=== PATIENT | male | born 1945 | race Caucasian/White ===

== ENCOUNTER 2024-09-05 15:09 | Emergency (ER) | payer OTHER ==
[~2024-09-05] VITALS: Ht 177.8 cm; Wt 67.0 kg
[~2024-09-05 15:09] MED LIST: AZIT-43; DOCU-94; FLUO-125; LACT10PA; LEUP1INJ; LISI10TA34; MELO7.5T7; METO25TA93; NITR0.4S31; ONDA-144; OXYB5TAB24; POTA10CA29; SIMV20TA20; SULF-35; TOLT4CAP; VARD20TA
--- NOTE | 2024-09-05 16:56 | ED.PDOC ---
HPI Comments 78-year-old male who presents to the emergency department with chest pain that started approximately 8-9 p.m. yesterday evening. He describes the pain as a heavy, pressure-like sensation does not radiate, unless side of his chest currently 7/10, intermittent. He states nitro relieved his chest pain a little bit . He has associated headache, rhinorrhea that started this morning, nausea and vomiting that started this morning, a little bit of left-sided numbness and he did not notice before, no other weakness, speech changes, difficulty with ambulation. Patient's past medical history of prostate cancer status post prostatectomy, status post colectomy, he denies history of stent or ND. 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 He states he suffers from low blood pressure however he takes simvastatin, Protonix, lisinopril, hydroxyurea, oxybutynin, al endronate, nitroglycerin. He took 3 baby aspirin prior to coming to the emergency department. Chief Complaint: Chest Pain Time Seen by MD: 15:26 Primary Care Provider: GRACIE Allergies: Coded Allergies: Penicillins (Verified Allergy, 01/09/13) Home Meds Reported Medications Docusate Sodium (Colace) 100 Mg Cap 01/09/13 Oxybutynin Chloride (Ditropan Xl) 5 Mg Tab 01/09/13 Tolterodine Tartrate (Detrol La) 4 Mg Cap 01/09/13 Meloxicam (Meloxicam) 7.5 Mg Tab 01/09/13 Metoprolol Succinate (Metoprolol Succinate Er) 25 Mg Tab 01/09/13 Vardenafil Hydrochloride (Levitra) 20 Mg Tab 01/09/13 Ondansetron (Zofran) 4 Mg Tab 01/09/13 Potassium Chloride (Micro-K) 10 Meq Cap 01/09/13 Nitroglycerin (Nitroglycerin) 0.4 Mg Sl 01/09/13 Fluoxetine Hcl (Fluoxetine Hcl) 20 Mg Cap 01/09/13 Lisinopril (Lisinopril) 10 Mg Tab 01/09/13 Azithromycin (Azithromycin) 250 Mg Tab 01/09/13 Leuprolide Acetate (Eligard) 22.5 Mg Inj 01/09/13 Simvastatin (Simvastatin) 20 Mg Tab 01/09/13 Lactulose (Kristalose) 10 Gm Nura 01/09/13 Sulfamethoxazole-Trimethoprim (Bactrim Ds) 1 Tab Tab 01/09/13 Leuprolide Acetate (Eligard) 22.5 Mg Inj 01/09/13 Mode of Arrival: Ambulatory Review of Systems: REVIEW OF SYSTEMS: No fever, no chills, or fatigue HEENT: No sore throat, no earache, no congestion, no neck pain. Cardiac: Positive chest pain. No palpitations. Lungs: No shortness of breath, no cough. GI: No nausea, no vomiting, no diarrhea, no constipation, no abdominal pain : No dysuria, frequency, or urgency. No hematuria. Musculoskeletal: No joint pain , no joint swelling, no extremity edema. Skin: No rash, no itching. Neuro: Positive headache, no dizziness, no weakness Vital Signs Vital Signs Date Time Temp Pulse Resp B/P (MAP) Pulse Ox O2 Delivery O2 Flow Rate FiO2 09/05/24 18:29 98.6 58 17 141/68 (92) 96 98.6 09/05/24 18:29 Room Air Physical Exam General: Awake, alert and oriented. No acute distress. Skin: Skin in warm, dry and intact. Appropriate color for ethnicity. Nailbeds pink with no cyanosis. HEENT: The head is normocephalic and atraumatic. Conjunctivae are clear without exudates or hemorrhage. Sclera is non-icteric. EOM are intact. No signs of nystagmus. Eyelids are normal in appearance without swelling or lesions. Oral mucosa is pink and moist Neck: The neck is supple with normal range of motion. No JVD. Cardiac: Heart rate and rhythm are normal. No murmurs, gallops, or rubs are auscultated. Radial pulses strong and equal bilaterally. Respiratory: No signs of respiratory distress. Lung sounds are clear in all lobes bilaterally without rales, ronchi, or wheezes. Abdominal: Abdomen is soft, non-tender without distention. Bowel sounds are present and normoactive in all four quadrants. Extremities: Upper and lower extremities are atraumatic in appearance without deformity or edema. Neurological: The patient is awake, alert and oriented to person, place, and time with normal speech. Speech is clear. There is no facial asymmetry. Normal gait. Psychiatric: Appropriate mood and affect. Good judgement and insight. No visual or auditory hallucinations. Past Medical History PAST MEDICAL HISTORY: CAD, High Lipids, HTN Family History Family History: Unobtainable Social History Smoker: Less Than 1 Pack/Day Alcohol: Denies ETOH Use Drugs: Denies Drug Use Lives In: Home EKG EKG : Comments Sinus rhythm at a rate of 59, QTC 442, QRS axis 41 no STEMI. Was a procedure done? Was a procedure done?: No CP Differential Dx Differential Diagnosis: Other (Differential diagnoses considered include acute ischemic coronary syndrome, aortic dissection, cardiac tamponade, mediastinitis, pulmonary embolus, pneumothorax, tension pneumothorax, esophageal rupture, coronary artery vasospasm, myocarditis, pericarditis, pneumonia, pulmonary edema, esophageal tear, pancreatitis, aortic stenosis, dilated cardiomyopathy, hypertrophic cardiomyopathy, mitral valve prolapse, malignancy, pleuritis, pneumomediastinum, primary pulmonary hypertension, cholecystitis, esophageal spasm, esophagus, gastritis, GERD, peptic ulcer disease, costochondritis, fibromyalgia, rib fracture, herpes zoster, radicular syndromes, thoracic outlet syndrome, somatization.) X-Ray, Labs, Meds, VS Vital Signs Date Time Temp Pulse Resp B/P (MAP) Pulse Ox O2 Delivery O2 Flow Rate FiO2 09/05/24 18:29 98.6 58 17 141/68 (92) 96 98.6 09/05/24 18:29 58 17 96 Room Air 09/05/24 18:11 56 09/05/24 16:13 59 09/05/24 15:28 98.1 52 16 171/82 (111) 94 09/05/24 15:14 59 Lab Test 09/05/24 18:32 09/05/24 16:20 09/05/24 15:17 Range/Units Influenza Type A Antigen Negative Negative Influenza Type B Antigen Negative Negative Troponin I High Sensitivity 4 5 </=54 ng/L White Blood Count 10.4 4.4-10.8 10^3/uL Red Blood Count 4.03 L 4.5-5.90 10^6/uL Hemoglobin 16.7 13.5-17.5 g/dL Hematocrit 48.3 41.0-53.0 % Mean Corpuscular Volume 119.8 H 80.0-100.0 fL Mean Corpuscular Hemoglobin 41.5 H 28.0-32.0 pg Mean Corpuscular Hemoglobin Concent 34.7 32.0-36.0 g/dL Red Cell Distribution Width 13.6 11.8-14.3 % Platelet Count 435 140-450 10^3/uL Mean Platelet Volume 7.6 6.9-10.8 fL Neutrophils (%) (Auto) 74.6 37.0-80.0 % Lymphocytes (%) (Auto) 14.8 10.0-50.0 % Monocytes (%) (Auto) 9.0 0.0-12.0 % Eosinophils (%) (Auto) 0.6 0.0-7.0 % Basophils (%) (Auto) 1.0 0.0-2.0 % Neutrophils # (Auto) 7.8 1.6-8.6 10 ^3/uL Lymphocytes # (Auto) 1.5 0.4-5.4 10 ^3/uL Monocytes # (Auto) 0.9 0-1.3 10 ^3/uL Eosinophils # (Auto) 0.1 0-0.8 10 ^3/uL Basophils # (Auto) 0.1 0-0.2 10 ^3/uL Nucleated Red Blood Cells 0.0 % Platelet Estimate [place] Large Platelets Few Polychromasia Slight Macrocytosis Moderate D-Dimer, Quantitative 0.89 H 0.0-0.49 mg/L FEU Sodium Level 140 136-145 mmol/L Potassium Level 4.9 3.5-5.1 mmol/L Chloride Level 107 98-107 mmol/L Carbon Dioxide Level 25 20-31 mmol/L Anion Gap 8 5-15 Blood Urea Nitrogen 14 9-23 mg/dL Creatinine 0.99 0.700-1.30 mg/dL Glomerular Filtration Rate Calc 78 >90 mL/min BUN/Creatinine Ratio 14.1 10.0-20.0 Serum Glucose 98 74-106 mg/dL Calcium Level 9.5 8.7-10.4 mg/dL Total Bilirubin 1.0 0.2-1.0 mg/dL Aspartate Amino Transferase (AST) 20 13-40 U/L Alanine Aminotransferase (ALT) 18 7-40 U/L Alkaline Phosphatase 68 46-116 U/L B-Type Natriuretic Peptide 120.11 0-100 pg/mL Total Protein 6.4 5.7-8.2 g/dL Albumin 4.3 3.2-4.8 g/dL Current Medications Medications (Trade) Dose Ordered Sig/Dion Route Start Time Stop Time Status Last Admin Acetaminophen (Tylenol Tablet) 650 mg ONCE ONCE PO 09/05/24 17:00 09/05/24 17:01 DC 09/05/24 18:30 CHEST RADIOGRAPH Indication: cp Technique: Single frontal view of the chest was obtained COMPARISON: None FINDINGS: Lines and Tubes: None Lungs: Clear Pleura: No effusion. No pneumothorax. Cardiomediastinal contours: Unremarkable Bones: Unremarkable IMPRESSION: No acute disease. Time of 1ST Reevaluation: 21:20 Reevaluation 1ST: N/A Patient Education/Counseling: Other (Patient eloped) Family Education/Counseling: No Family Present Departure 1 Departure Time of Disposition: 21:20 Impression: Primary Impression: Chest pain Disposition: HOME / SELF CARE / HOMELESS Condition: Stable Comments 78 Year old male with chest pain. EKG negative for signs of ischemia. High sensitivity troponin negative. CXR shows no acute process. D-dimer positive in the presence of history of prostate cancer. Patient was not hypoxic or in any distress during the ED observation. Patient eloped from the Emergency department prior to receiving CT angio. Attempted to reach the patient by phone however number on file is not working. Extensive evaluation was performed in attempt to identify or rule out: (See differential diagnosis section) The following tests were ordered, and results were reviewed by me: (See diagnostic results section) The following test were independently interpreted by me: EKG, chest x-ray-no acute disease I reviewed and agreed with the following test results read by other providers: N/A I reviewed the following notes from the pt's past medical encounters: Encounter January 10, 2013 for chest pain at which time patient refused admission further evaluation and treatment Additional information was gathered from interviewing the following independent historians: N/A Discussion of management or test interpretation with external physician/other qualified health career development coordinator: N/A Addressed an acute or chronic illness that poses a threat to life or bodily function: Chest pain Drug therapy requiring intensive monitoring for toxicity: N/A Parenteral controlled substances: N/A Decision regarding elective major surgery with identified patient or procedure risk factors: N/A Decision regarding emergency major surgery: N/A Decision not to resuscitate or to de-escalate care because of poor prognosis: N/A Diagnosis or treatment significantly limited by social determinants of health: N/A Critical Care Note Critical Care Time?: No Stability Stability form required: No Heart Score Heart Score: Heart Score Response (Comments) Value History Moderate Suspicious 1 EKG Normal 0 Age <45 0 Risk Factors >3 or Hx ASHD 2 Troponin Normal limit 0 Total 3 ARNOLDO MONACO MD Sep 05, 2024 16:56
[2024-09-05 16:59] LABS: Basophils # (auto) 0.1 10 ^3/uL (0-0.2); Eosinophils # (auto) 0.1 10 ^3/uL (0-0.8); Hematocrit 48.3 % (41.0-53.0); Hemoglobin 16.7 g/dL (13.5-17.5); Lymphocytes # (auto) 1.5 10 ^3/uL (0.4-5.4); Mean Corpuscular Volume 119.8 fL (80.0-100.0); Monocytes # (auto) 0.9 10 ^3/uL (0-1.3); Neutrophils # (auto) 7.8 10 ^3/uL (1.6-8.6); Red Blood Cells 4.03 10^6/uL (4.5-5.90); Red Cell Distribution Width 13.6 % (11.8-14.3); White Blood Cell 10.4 10^3/uL (4.4-10.8)
[2024-09-05 17:00] LABS: Eosinophils % (auto) 0.6 % (0.0-7.0); Lymphocytes % (auto) 14.8 % (10.0-50.0); Mean Corpuscular Hemoglobin 41.5 pg (28.0-32.0); Mean Corpuscular Hgb Conc. 34.7 g/dL (32.0-36.0); Neutrophils % (auto) 74.6 % (37.0-80.0); Platelet Count (auto) 435 10^3/uL (140-450)
[2024-09-05 17:11] LABS: Alanine Aminotransferase 18 U/L (7-40); Albumin 4.3 g/dL (3.2-4.8); Alkaline Phosphatase 68 U/L (46-116); Anion Gap 8 (5-15); Aspartate Aminotransferase 20 U/L (13-40); BUN/Creatinine Ratio 14.1 (10.0-20.0); Blood Urea Nitrogen 14 mg/dL (9-23); Calcium 9.5 mg/dL (8.7-10.4); Carbon Dioxide 25 mmol/L (20-31); Glucose 98 mg/dL (74-106); Potassium 4.9 mmol/L (3.5-5.1); Sodium 140 mmol/L (136-145)
[2024-09-05 17:12] LABS: Total Protein 6.4 g/dL (5.7-8.2)
[2024-09-05 17:20] LABS: Chloride 107 mmol/L (98-107)
--- NOTE | 2024-09-05 17:26 | DVH ---
CHEST RADIOGRAPH Indication: cp Technique: Single frontal view of the chest was obtained COMPARISON: None FINDINGS: Lines and Tubes: None Lungs: Clear Pleura: No effusion. No pneumothorax. Cardiomediastinal contours: Unremarkable Bones: Unremarkable IMPRESSION: No acute disease.
[2024-09-05 17:32] LABS: Large Platelets FEW; Macrocytosis Moderate; Polychromasia Slight
[2024-09-05 17:33] LABS: Platelet Estimate Adequa
[2024-09-05 18:29] VITALS: BP 141/68; PULSE 58; RESP 17; TEMP 98.6; O2SAT 96
[2024-09-05] MEDS: ACETAMINOPHEN 325 MG TAB PO ONE (18:30)
--- NOTE | 2024-09-05 19:02 | ECG ---
[facility] Test Date: 2024-09-05 Test Time: 16:13:39 Pat Name: STEVIE GAUTHIER Department: ED Room: Gender: M Reliner: LISE : 1945 Requested By: NEGRITO BAR Order Number: [id number] Reading MD: Measurements Intervals [place] Rate: 59 P: -2 CA: 141 QRS: 41 QRSD: 98 T: 1 QT: 446 QTc: 442 Interpretive Statements Sinus rhythm Please click the below link to view image of tracing.
[2024-09-05 19:08] LABS: Rapid Influenza A Negative (Negative); Rapid Influenza B Negative (Negative)
[2024-09-05] MEDS ORDERED: IOHEXOL 350 MG/ML 100ML IJ ONE (19:58)
--- NOTE | 2024-09-06 07:05 | ECG ---
[facility] Test Date: 2024-09-05 Test Time: 15:14:28 Pat Name: STEVIE GAUTHIER Department: ER Room: Gender: M Supersonic Engineer: IVETTE : 1945 Requested By: NEGRITO BAR Order Number: [id number] Reading MD: Measurements Intervals [place] Rate: 59 P: 3 FL: 151 QRS: -15 QRSD: 98 T: 15 QT: 442 QTc: 438 Interpretive Statements Sinus rhythm Borderline left axis deviation Please click the below link to view image of tracing.
--- NOTE | 2024-09-07 15:31 | ECG ---
[facility] Test Date: 2024-09-05 Test Time: 18:11:46 Pat Name: STEVIE GAUTHIER Department: ED Room: Gender: M Dental Laboratory Supervisor: LISE : 1945 Requested By: NEGRITO BAR Order Number: [id number] Reading MD: Measurements Intervals [place] Rate: 56 P: -1 CT: 149 QRS: 47 QRSD: 94 T: 0 QT: 451 QTc: 436 Interpretive Statements Sinus rhythm Please click the below link to view image of tracing.
== END 2024-09-05 21:20 | disposition left against medical advice (07) ==
LOC: ER 15:09
DX: R07.9 Chest pain, unspecified (principal); R51.9 Headache, unspecified; I10 Essential (primary) hypertension; F17.210 Nicotine dependence, cigarettes, uncomplicated; Z85.46 Personal history of malignant neoplasm of prostate; Z86.73 Personal history of transient ischemic attack (TIA), and cerebral infarction without residual deficits; Z88.0 Allergy status to penicillin; Z90.49 Acquired absence of other specified parts of digestive tract; Z90.79 Acquired absence of other genital organ(s)
CPT/HCPCS: 36415; 71045; 80053; 83880; 84484; 85025; 85379; 87804; 93005